=== PATIENT | female | born 1970 | race Asian ===

== ENCOUNTER 2017-02-17 07:02 | Outpatient (CLI) | payer BC ==
[~2017-02-17 07:02] MED LIST: HYDR25TA4 PO; IBUP-1969 PO; LEVO500T20 PO; METR500T PO
== END 2017-02-17 19:08 | disposition home or self-care (01) ==
LOC: SLB 07:02
PROVIDERS: ATTEND Specialist
DX: C18.9 Malignant neoplasm of colon, unspecified (principal)
CPT/HCPCS: 88305; 88341; 88342; 88361